=== PATIENT | female | born 1970 | race Caucasian/White ===

== ENCOUNTER 2019-12-19 08:50 | Emergency (ER) | payer OTHER ==
[~2019-12-19] VITALS: Ht 162.6 cm; Wt 79.8 kg
[2019-12-19 08:58] VITALS: BP 123/94
[2019-12-19] MEDS ORDERED: MORPHINE SULFATE 4 MG/ML, 1ML IVPush PRN (09:30)
[2019-12-19] MEDS ORDERED: MORPHINE SULFATE 4 MG/ML, 1ML ONE ×2 (09:34→10:34)
[2019-12-19] MEDS ORDERED: ONDANSETRON 2MG/ML, 2ML ONE (09:34)
--- NOTE | 2019-12-19 09:40 | NUR ---
PT TO XRAY AT THIS TIME.
[2019-12-19 09:45] LABS: BASOPHILS # (AUTO) 0.04 x10^3/uL (0-0.1); BASOPHILS % (AUTO) 0 % (0-1); EOSINOPHILS # (AUTO) 0.04 x10^3/uL (0-0.4); EOSINOPHILS % (AUTO) 0 % (1-7); LYMPHOCYTES # (AUTO) 1.49 x10^3/uL (1-3.4); LYMPHOCYTES % (AUTO) 15 % (22-44); MD NO; MEAN CORPUSCULAR HEMOGLOBIN 31.8 pg (27.0-34.8); MEAN CORPUSCULAR HGB CONC 33.7 g/dL (32.4-35.8); MEAN CORPUSCULAR VOLUME 94.4 fL (80-100); MEAN PLATELET VOLUME 7.3 fL (7.4-10.4); MONOCYTES # (AUTO) 0.52 x10^3/uL (0.2-0.8); MONOCYTES % (AUTO) 5 % (2-9); NEUTROPHILS # (AUTO) 7.57 x10^3/uL (1.8-6.8); NEUTROPHILS % (AUTO) 78 % (42-75); PLATELET COUNT 333 x10^3/uL (130-400); RED CELL DISTRIBUTION WIDTH 13.5 % (9.6-15.2)
[2019-12-19 09:55] LABS: ALBUMIN 3.6 g/dL (3.4-5.0); ANION GAP 9 mmol/L (5-15); CALCIUM 8.2 mg/dL (8.5-10.1); CHLORIDE 109 mmol/L (98-107); CREATININE 0.68 mg/dL (0.55-1.02)
[2019-12-19] MEDS ORDERED: ONDANSETRON 2MG/ML, 2ML IVPush ONE (10:00)
--- NOTE | 2019-12-19 10:00 | NUR ---
PT [facility] - [phone]
[2019-12-19] MEDS ORDERED: KETOROLAC 30 MG/1 ML ONE (10:34)
[2019-12-19 10:43] LABS: CULTURE INDICATED? NO; MICROSCOPIC NOT IND
--- NOTE | 2019-12-19 10:48 | NUR ---
PT UP TO BEDSIDE COMMODE WITH ONE PERSON ASSIST. URINE SAMPLE COLLECTED AND SENT. PT MEDICATED PER JAN, RESTING AT THIS TIME, CALL LIGHT IN REACH. MONITORS ATTACHED.
[2019-12-19] MEDS ORDERED: KETOROLAC 30 MG/1 ML IVPush ONE (11:00)
--- NOTE | 2019-12-19 11:21 | NUR ---
pt provided with incentive spirometer and hands on demonstration. pt able to return demo without issue. denies any further needs at this time, call light in reach. this nurse called pt mother to alert of impending discharge, no answer, message left at this time.
== END 2019-12-19 11:59 ==
LOC: ED 10:11
DX: S22.31XA Fracture of one rib, right side, initial encounter for closed fracture (principal); I10 Essential (primary) hypertension; W19.XXXA Unspecified fall, initial encounter; Y93.89 Activity, other specified; Y92.89 Other specified places as the place of occurrence of the external cause; Y99.8 Other external cause status
CPT/HCPCS: 36415; 71101; 80048; 81003; 82040; 84703; 85025; 96374; 96375; 99284; J2270; J2405